=== PATIENT | female | born 1990 ===

== ENCOUNTER → 2018-11-19 | Outpatient (CLI) | payer OTHER ==
[~2018-11-19] MED LIST: ALBU90OI61 INH; BIRTH CONTROL; GUAI600T33 PO; Verotin-Gr Cap1 EACH PO; Zofran Odt4 MG PO
[2018-11-21 05:40] LABS: HIV SCREEN 4TH GENERATION WRFX Non Reactive (Non Reactive)
[2018-11-21 20:06] LABS: CHLAMYDIA TRACHOMATIS, NAA Negative (Negative); NEISSERIA GONORRHOEAE, NAA Negative (Negative)
== END | disposition home or self-care (01) ==
LOC: LAB EV 16:50 → LAB SHORT 16:50
PROVIDERS: Physician Assistant Surgical
DX: N76.0 Acute vaginitis (principal)
CPT/HCPCS: 86592; 87070; 87205; 87389; 87491; 87591

== ENCOUNTER → 2018-12-22 | Outpatient (CLI) | payer OTHER ==
[2018-12-23 14:04] LABS: Candida species (DNA Probe) Negative (NEGATIVE); G. vaginalis (DNA Probe) Positive (NEGATIVE); T. vaginalis (DNA Probe) Negative (NEGATIVE)
== END | disposition home or self-care (01) ==
LOC: LAB SHORT 17:33 → LAB 17:33
PROVIDERS: Family Medicine
DX: N76.0 Acute vaginitis (principal)
CPT/HCPCS: 87480; 87510; 87660

== ENCOUNTER → 2019-03-08 | Outpatient (CLI) | payer OTHER ==
[2019-03-08 13:10] LABS: Source, Urine Clean Catch
[2019-03-08 18:15] LABS: Bilirubin, Urine Neg (Neg); Blood, Urine Neg (Neg); Glucose Qualitative, Urine Neg (Neg); Ketones, Urine Neg (Neg); Leukocyte Esterase, Urine Neg (Neg); Nitrite, Urine Neg (Neg); Protein, Urine Neg (Neg); Urobilinogen, Urine NORM (Normal)
[2019-03-08 18:31] LABS: Appearance, Urine Hazy (Clear); Color, Urine Yellow (P-Yellow)
[2019-03-08 18:32] LABS: Amorphous Heavy (0-Heavy); Bacteria Few /hpf; Red Blood Cells, Urine 0-2 /hpf (0-2); Squamous Epithelial Cells Few /hpf (Few); White Blood Cells, Urine 0-2 /hpf (0-5)
== END | disposition home or self-care (01) ==
LOC: LAB SHORT 12:42 → LAB 12:42
PROVIDERS: Nurse Practitioner Family
DX: N76.0 Acute vaginitis (principal); R11.2 Nausea with vomiting, unspecified; M54.5 Low back pain
CPT/HCPCS: 81001